=== PATIENT | female | born 1995 | race Caucasian/White ===

== ENCOUNTER 2016-10-19 22:43 | Emergency (ER) | payer MEDICAID ==
[~2016-10-19] VITALS: Ht 160 cm; Wt 81.5 kg
[2016-10-19 22:50] VITALS: Ht 160 cm; Wt 81.5 kg
[2016-10-20] MEDS ORDERED: ACETAMINOPHEN 500 MG TAB PO STA (00:18)
[2016-10-20] MEDS ORDERED: AMO500 PO (00:19)
[2016-10-20] MEDS ORDERED: NPH10OT LEFT EAR (00:19)
[2016-10-20 00:33] VITALS: BP 127/77; PULSE 89; RESP 17; TEMP 99.3
--- NOTE | 2016-10-20 01:10 | ERD ---
ER Documentation Chief Complaint Date/Time DATE: 10/20/16 TIME: 01:08 Chief Complaint pt c/o r ear pain x 2 days denies fevers HPI This is a 21-year-old female presenting to the emergency department complaining of left ear pain for the past 2 days. Patient states that pain is 6 out of 10. She denies any fevers, She states that she does feel like she has muffled ear sounds. She states that she tried [id number] eardrops but no relief ROS All systems reviewed and are negative except as per history of present illness. Medications Home Meds Active Scripts Neomycin/Polymyxin/Hydrocort* (Cortisporin* Otic) 10 Ml Susp, 4 DROP LEFT EAR QID for 7 Days, EA Prov:YARITZA CAPONE PA-C 10/20/16 Amoxicillin* (Amoxicillin*) 500 Mg Cap, 500 MG PO BID for 10 Days, CAP Prov:YARITZA CAPONE PA-C 10/20/16 PMhx/Soc Medical and Surgical Hx: pt denies Medical Hx, pt denies Surgical Hx Hx Alcohol Use: No Hx Substance Use: No Hx Tobacco Use: No Physical Exam Vitals Vital Signs Date Time Temp Pulse Resp B/P Pulse Ox O2 Delivery O2 Flow Rate FiO2 10/20/16 00:33 99.3 89 17 127/77 98 Room Air 10/19/16 22:50 99.3 119 20 138/79 98 Physical Exam Const: [] Head: Atraumatic Left tympanic membrane has discharge, positive tragus tenderness Eyes: Normal Conjunctiva ENT: Normal External Ears, Nose and Mouth. Neck: Full range of motion..~ No meningismus. Resp: Clear to auscultation bilaterally Cardio: Regular rate and rhythm, no murmurs Abd: Soft, non tender, non distended. Normal bowel sounds Skin: No petechiae or rashes Back: No midline or flank tenderness Ext: No cyanosis, or edema Neur: Awake and alert Psych: Normal Mood and Affect Results 24 hrs Current Medications Medications (Trade) Dose Ordered Sig/Khurram Route PRN Reason Start Time Stop Time Status Last Admin Dose Admin Acetaminophen (Tylenol Tab) 1,000 mg ONCE STAT PO 10/20/16 00:18 10/20/16 00:19 DC 10/20/16 00:32 Procedures/MDM This is a 21-year-old female presenting to the emergency room complaining of left ear pain for the past couple days which has worsened today. On examination there was discharge in the left ear and I cannot see the tympanic membrane, patient likely has otitis externa. She will be given prescription for Cortisporin. A prescription for amoxicillin was also provided. There is no evidence of mastoiditis, bacteremia. Patient stable for discharge. Discussed return the ER for any worsening symptoms she understands and agrees with Departure Diagnosis: Primary Impression: Otitis externa Condition: Stable Patient Instructions: External Ear Infection (Adult) Additional Instructions: FOLLOW UP WITH YOUR PRIMARY CARE PHYSICIAN TOMORROW.Return to this facility if you are not improving as expected. Take all medicines as directed. Return to this facility if you are not improving as expected. YARITZA CAPONE PA-C Oct 20, 2016 01:10
== END 2016-10-20 00:33 | disposition home or self-care (01) ==
LOC: MERGE 22:43 → FTE 22:43
DX: H60.92 Unspecified otitis externa, left ear (principal)
CPT/HCPCS: 99283